=== PATIENT | male | born 1960 ===

== ENCOUNTER → 2020-07-02 | Outpatient (CLI) | payer MEDICARE, OTHER | LOC: LAB 13:48 → LAB SHORT 13:48 | DX: Z48.02 Encounter for removal of sutures (principal); L08.9 Local infection of the skin and subcutaneous tissue, unspecified | CPT/HCPCS: 87070; 87077; 87186; 87205 ==

== ENCOUNTER → 2020-07-20 | Outpatient (CLI) | payer MEDICARE, OTHER | LOC: LAB 14:17 → LAB SHORT 14:17 | DX: D04.5 Carcinoma in situ of skin of trunk (principal); L90.5 Scar conditions and fibrosis of skin; L08.9 Local infection of the skin and subcutaneous tissue, unspecified | CPT/HCPCS: 87070; 87077; 87147; 87186; 87205 ==